=== PATIENT | female | born 1975 | race American Indian/Alaskan Native ===

== ENCOUNTER 2019-06-13 18:03 | Emergency (ER) | payer SELFPAY ==
[2019-06-13 18:59] VITALS: BP 146/104
--- NOTE | 2019-06-13 18:59 | Event Note ---
ED Screening Note Date of service: 06/13/19 Time: 18:58 ED Screening Note: This is a 44 y.o. F. that presents to the ER with painful abscess to left axilla. Taking NSAIDs without relief. Denies drainage or fever. Current smoker This initial assessment/diagnostic orders/clinical plan/treatment(s) is/are subject to change based on patients health status, clinical progression and re- assessment by fellow clinical providers in the ED. Further treatment and workup at subsequent clinical providers discretion. Patient/guardian urged not to elope from the ED as their condition may be serious if not clinically assessed and managed. Initial orders include:
== END 2019-06-13 20:20 | disposition left against medical advice (07) ==
LOC: ED 18:03
DX: L98.9 Disorder of the skin and subcutaneous tissue, unspecified (principal); Z53.21 Procedure and treatment not carried out due to patient leaving prior to being seen by health care provider